=== PATIENT | male | born 1975 | race Caucasian/White ===

== ENCOUNTER 2017-01-03 16:34 | Emergency (ER) | payer BC ==
[2017-01-03] MEDS ORDERED: Ketorolac INJ* 30 MG/ML 1 ML VIAL IV ONE (17:15)
[2017-01-03] MEDS ORDERED: HYDROmorphone* 1 MG/ML 1 ML SYR IV ONE (17:15)
--- NOTE | 2017-01-03 18:28 | RAD ---
INDICATION: Left shoulder injury. TECHNIQUE: 3 views of the left shoulder were obtained. FINDINGS: There is anterior subcoracoid dislocation of the humerus. There is a Hill-Sachs fracture present. No other fractures are seen. IMPRESSION: ANTERIOR DISLOCATION OF THE HUMERUS AND HILL-SACHS FRACTURE.
[2017-01-03] MEDS ORDERED: fentaNYL* 50 MCG/ML 2 ML VIAL (100 MCG VIAL) IV SLOW PU ONE (18:31)
[2017-01-03] MEDS ORDERED: Midazolam* 1 MG/ML 10 ML VIAL (10 MG) IV ONE (18:31)
[2017-01-03] MEDS ORDERED: Naloxone* 0.4 MG/ML 1 ML VIAL ONE (18:48)
[2017-01-03] MEDS ORDERED: Flumazenil* 0.1 MG/ML 5 ML MDV ONE (18:49)
--- NOTE | 2017-01-03 19:51 | RAD ---
INDICATION: Left shoulder dislocation status post reduction. COMPARISON: Comparison is made with the prereduction films of the same date. TECHNIQUE: A single AP view of the shoulder was obtained. FINDINGS: The bones are in normal alignment. There has been interval reduction of the previously noted anterior dislocation of the humerus. There is a Hill-Sachs fracture. IMPRESSION: STATUS POST REDUCTION. THE BONES ARE IN NORMAL ALIGNMENT.
[2017-01-03 22:15] VITALS: BP 111/58
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
--- NOTE | 2017-01-18 06:59 | ED ---
Rosa Maria Tesfaye Edward, scribed for Jj Bhakta MD on 01/03/17 at 2055 . Progress - Progress Note Progress Note: Signed out from Dr. Desmond Green to Dr. Jj Bhakta. Status Post L Shoulder XRAY shows "BONES ARE IN NORMAL ALIGNMENT. Patient will be discharged with L shoulder dislocation, with F/U with the orthopedist in 2-3 days. - EKG/XRAY/CT XRAY: Shoulder Xray Comments: STATUS POST REDUCTION: THE BONES ARE IN NORMAL ALIGNMENT Course/Dx - Diagnoses Provider Diagnoses: Shoulder dislocation The documentation as recorded by the Rosa Maria viramontes Edward accurately reflects the service I personally performed and the decisions made by Livia escoto David, MD.
== END 2017-01-03 21:22 | disposition home or self-care (01) ==
LOC: ED 16:34
DX: S42.292A Other displaced fracture of upper end of left humerus, initial encounter for closed fracture (principal); W16.712A Jumping or diving from boat striking water surface causing other injury, initial encounter; Y93.9 Activity, unspecified; Y92.9 Unspecified place or not applicable; I10 Essential (primary) hypertension; F12.90 Cannabis use, unspecified, uncomplicated
CPT/HCPCS: 23650; 96374; 96375; 99283; J1170; J1885; J2250; J2310; J3010